=== PATIENT | male | born 1960 | race Caucasian/White ===

== ENCOUNTER 2017-04-25 15:11 | Emergency (ER) | payer BC ==
[~2017-04-25] VITALS: Ht 175.3 cm; Wt 107.7 kg
[2017-04-25] MEDS ORDERED: [UNRECOGNIZED DRUG - CODE] PO (15:20)
[2017-04-25] MEDS ORDERED: MULT1TAB18 PO (15:20)
[2017-04-25] MEDS ORDERED: ASCO25TA PO (15:20)
[2017-04-25] MEDS ORDERED: NS 1,000 ML IV SCH (16:13)
[2017-04-25] MEDS ORDERED: KETOROLAC 30 MG/ML VIAL (J1885) IV ONE (16:15)
[2017-04-25] MEDS ORDERED: ONDANSETRON 4MG/2ML VIAL (J2405) IV ONE (16:15)
[2017-04-25 16:59] LABS: BASO % 0.3 % (0.0-1.0); EOS % 0.2 % (0.0-3.0); IMMATURE GRANULOCYTE % 0.4 % (0-0); LYMPH # 1.4 10^3/uL (1.5-4.5); LYMPH % 11.2 % (24.0-44.0); MEAN CORPUSCULAR HEMOGLOBIN 31.3 pg (27.0-33.0); MEAN CORPUSCULAR HGB CONC 34.8 g/dl (32.0-36.5); MEAN CORPUSCULAR VOLUME 90.1 fl (80.0-96.0); MONO # 0.8 10^3/uL (0.0-0.8); MONO % 6.4 % (0.0-5.0); NEUTROPHILS # 10.1 10^3/uL (1.8-7.7); NEUTROPHILS % 81.5 % (36.0-66.0); PLATELET COUNT, AUTOMATED 198 10^3/uL (150-450); RED CELL DISTRIBUTION WIDTH 12.5 % (11.5-14.5); WHITE BLOOD COUNT 12.4 10^3/uL (4.0-10.0)
--- NOTE | 2017-04-25 17:20 | REP ---
CT abdomen pelvis without IV or bowel contrast: There is a 6 ml calculus in the distal left ureter in the upper pelvis with hydroureter and hydronephrosis above the level of the calculus. There are no other left renal ureteral calculi. There are no right renal or ureteral calculi. There are no bladder calculi. The visualized lower lung lai demonstrate discoid atelectasis in the left lower lobe but otherwise unremarkable. The unenhanced hepatic parenchyma, gallbladder, pancreas and spleen are unremarkable except for a splenic calcified granuloma. The adrenals, abdominal aorta, bowel and mesentery are unremarkable. Pelvis: There is no ascites or adenopathy. The pelvic bowel loops are unremarkable. There is no unremarkable. There is multilevel degenerative disc disease in the lumbar spine. Impression: There is a 6 mm calculus in the distal left ureter in the upper pelvis resulting in left hydronephrosis. Signed by Martínez Ortega MD 04/25/2017 05:12 P
[2017-04-25 17:35] LABS: ALBUMIN/GLOBULIN RATIO 1.33 (1.00-1.93); ALKALINE PHOSPHATASE 50 U/L (45-117); ALT/SGPT 36 U/L (12-78); ANION GAP 8 MEQ/L (8-16); AST/SGOT 20 U/L (15-37); BILIRUBIN,DIRECT < 0.1 MG/DL (0.0-0.2); BILIRUBIN,TOTAL 0.4 MG/DL (0.2-1.0); BLOOD UREA NITROGEN 22 MG/DL (7-18); CALCIUM LEVEL 8.8 MG/DL (8.5-10.1); CARBON DIOXIDE LEVEL 29 MEQ/L (21-32); CHLORIDE LEVEL 105 MEQ/L (98-107); CREATININE FOR GFR 0.91 MG/DL (0.70-1.30); GLOMERULAR FILTRATION RATE > 60.0 (>56); GLUCOSE, FASTING 115 MG/DL (70-105); SODIUM LEVEL 142 MEQ/L (136-145)
[2017-04-25] MEDS ORDERED: MORPHINE 4 MG/ML 1ML SYRINGE IV ONE ×2 (17:45→18:15)
[2017-04-25] MEDS ORDERED: HYDROmorphone HCL 1 MG/ML SYRINGE (J1170) IV ONE (19:30)
[2017-04-25] MEDS ORDERED: ZOFR4TAB3 PO (20:30)
[2017-04-25] MEDS ORDERED: FLOM5CAP PO (20:30)
[2017-04-25] MEDS ORDERED: PERC5TAB12 PO (20:30)
[2017-04-25] MEDS ORDERED: OXYCODONE/APAP 5MG/325MG(BULK FOR ED) 1 TABLET PO ONE (20:30)
[2017-04-25] MEDS ORDERED: TAMSULOSIN 0.4 MG CAP PO ONE (20:30)
[2017-04-25 20:52] VITALS: BP 147/94
== END 2017-04-25 20:55 | disposition home or self-care (01) ==
LOC: M ED 15:11
DX: N21.1 Calculus in urethra (principal); Z79.899 Other long term (current) drug therapy
CPT/HCPCS: 74176; 80048; 80076; 81001; 83690; 85025; 87086; 96374; 96375; 99283; J1170; J1885; J2405

== ENCOUNTER 2017-11-21 10:25 | Emergency (ER) | payer BC ==
[2017-11-21] MEDS: FLUORESCEIN OPHTH 1 MG STRIP OD (11:45)
[2017-11-21] MEDS: TETRACAINE 0.5% OPHTH SOLN 4ML OD (11:45)
== END 2017-11-21 12:45 | disposition home or self-care (01) ==
LOC: M ED 10:25
DX: H53.9 Unspecified visual disturbance (principal); Z79.899 Other long term (current) drug therapy
CPT/HCPCS: 99283

== ENCOUNTER → 2022-07-22 | Outpatient (CLI) | payer BC ==
[~2022-07-22] MED LIST: FLOM0.4C39 PO; GASTROGRAFIN SOLUTION 30ML As Ordered ONE; ISOVUE-370 76% 100ML VIAL As Ordered ONE; MULT1TAB18 PO; PERC5TAB12 PO; VITA250T20 PO; ZOFR4TAB14 PO; [UNRECOGNIZED DRUG - CODE] PO
== END ==
LOC: M RAD 12:49
PROVIDERS: ATTEND Physician Assistant
DX: K46.9 Unspecified abdominal hernia without obstruction or gangrene (principal)

== ENCOUNTER 2022-11-17 10:03 | Inpatient (IN) | payer BC ==
[~2022-11-17] VITALS: Ht 180.3 cm; Wt 101.0 kg
[2022-11-17] MEDS: ENOXAPARIN 40MG/0.4ML SYRINGE (J1650 PER 10MG) SC SCH (09:00)
[~2022-11-17 10:03] MED LIST changes: -GASTROGRAFIN SOLUTION 30ML As Ordered ONE; -ISOVUE-370 76% 100ML VIAL As Ordered ONE
[2022-11-17] MEDS ORDERED: MELO15TA28 PO (10:13)
[2022-11-17] MEDS ORDERED: TUME1CAP PO (10:13)
[2022-11-17 11:14] LABS: BASO % 0.3 % (0.0-1.0); EOS % 0.1 % (0.0-3.0); HEMATOCRIT 47.4 % (42.0-52.0); HEMOGLOBIN 16.5 g/dl (13.5-17.5); LYMPH # 1.5 10^3/uL (1.5-5.0); LYMPH % 13.9 % (24.0-44.0); MEAN CORPUSCULAR HEMOGLOBIN 31.5 pg (27.0-33.0); MEAN CORPUSCULAR HGB CONC 34.8 g/dl (32.0-36.5); MEAN CORPUSCULAR VOLUME 90.6 fl (80.0-96.0); MONO # 0.8 10^3/uL (0.0-0.8); MONO % 7.8 % (2.0-8.0); NEUTROPHILS # 8.2 10^3/uL (1.5-8.5); NEUTROPHILS % 77.4 % (36.0-66.0); PLATELET COUNT, AUTOMATED 204 10^3/uL (150-450); RED BLOOD COUNT 5.23 10^6/uL (4.30-6.10); WHITE BLOOD COUNT 10.6 10^3/uL (4.0-10.0)
[2022-11-17 11:35] LABS: LIPASE 39 U/L (12-53)
[2022-11-17] MEDS ORDERED: ONDANSETRON 4MG 2ML VIAL IV ONE (11:35)
[2022-11-17] MEDS ORDERED: NS 1,000 ML IV ONE (11:35)
[2022-11-17 11:37] LABS: ALBUMIN 4.3 G/DL (3.2-5.2); ALKALINE PHOSPHATASE 57 U/L (46-116); ALT/SGPT 22 U/L (7.0-40); AST/SGOT 20 U/L (<34); BILIRUBIN,DIRECT 0.4 MG/DL (<0.4); BILIRUBIN,TOTAL 1.7 MG/DL (0.3-1.2); BLOOD UREA NITROGEN 19 MG/DL (9-23); CALCIUM LEVEL 9.8 MG/DL (8.3-10.6); CARBON DIOXIDE LEVEL 30 MMOL/L (20-31); CHLORIDE LEVEL 104 MMOL/L (98-107); CREATININE FOR GFR 0.67 MG/DL (0.70-1.30); GLOMERULAR FILTRATION RATE > 60.0 (>49); GLUCOSE, FASTING 117 MG/DL (74-106); POTASSIUM SERUM 3.8 MMOL/L (3.5-5.1); SODIUM LEVEL 137 MMOL/L (136-145); TOTAL PROTEIN 7.1 G/DL (5.7-8.2)
[2022-11-17] MEDS ORDERED: ISOVUE-370 76% 100ML VIAL As Ordered ONE (11:46)
[2022-11-17] MEDS ORDERED: CYAN500T3 PO (12:01)
[2022-11-17] MEDS ORDERED: PRES10CA2 PO (12:01)
[2022-11-17] MEDS ORDERED: VITMTA PO (12:01)
[2022-11-17] MEDS ORDERED: ASCO500T PO (12:01)
[2022-11-17] MEDS ORDERED: RA T500C2 PO (12:01)
[2022-11-17] MEDS ORDERED: HOME MED LIST COMPLETE! XX SCH (12:05)
[2022-11-17 12:40] LABS: CK-MB VALUE MASS 2.2 NG/ML (<3.6)
[2022-11-17 12:41] LABS: MB/CK RELATIVE INDEX 2.22 (< OR =4)
[2022-11-17] MEDS ORDERED: PANTOPRAZOLE 40MG VIAL IV ONE (13:25)
[2022-11-17 14:48] LABS: RSV AMPLIFICATION NEGATIVE (NEGATIVE)
[2022-11-17] MEDS ORDERED: MORPHINE 2 MG/ML 1ML VIAL IV PRN (15:20)
[2022-11-17] MEDS ORDERED: ONDANSETRON 4MG 2ML VIAL IV PRN (15:20)
[2022-11-17] MEDS: LR 1,000 ML IV SCH (15:31)
[2022-11-17 15:45] LABS: MAGNESIUM LEVEL 2.1 MG/DL (1.8-2.4)
[2022-11-17 17:17] VITALS: BP 127/87
[2022-11-17 20:45] VITALS: BP 132/77
[2022-11-18] MEDS: LR 1,000 ML IV SCH ×3 (02:12→23:29)
[2022-11-18 06:00] VITALS: BP 129/86
[2022-11-18 07:20] LABS: HEMATOCRIT 44.7 % (42.0-52.0); HEMOGLOBIN 14.9 g/dl (13.5-17.5); MEAN CORPUSCULAR HEMOGLOBIN 31.4 pg (27.0-33.0); MEAN CORPUSCULAR HGB CONC 33.3 g/dl (32.0-36.5); MEAN CORPUSCULAR VOLUME 94.3 fl (80.0-96.0); PLATELET COUNT, AUTOMATED 171 10^3/uL (150-450); RED BLOOD COUNT 4.74 10^6/uL (4.30-6.10); WHITE BLOOD COUNT 8.2 10^3/uL (4.0-10.0)
[2022-11-18 07:49] LABS: ALBUMIN 3.6 G/DL (3.2-5.2); ALKALINE PHOSPHATASE 48 U/L (46-116); ALT/SGPT 18 U/L (7.0-40); AST/SGOT 18 U/L (<34); BILIRUBIN,TOTAL 1.7 MG/DL (0.3-1.2); BLOOD UREA NITROGEN 19 MG/DL (9-23); CALCIUM LEVEL 8.9 MG/DL (8.3-10.6); CARBON DIOXIDE LEVEL 29 MMOL/L (20-31); CHLORIDE LEVEL 105 MMOL/L (98-107); CREATININE FOR GFR 0.71 MG/DL (0.70-1.30); GLOMERULAR FILTRATION RATE > 60.0 (>49); GLUCOSE, FASTING 97 MG/DL (74-106); POTASSIUM SERUM 3.8 MMOL/L (3.5-5.1); SODIUM LEVEL 141 MMOL/L (136-145); TOTAL PROTEIN 5.8 G/DL (5.7-8.2)
[2022-11-18] MEDS: ENOXAPARIN 40MG/0.4ML SYRINGE (J1650 PER 10MG) SC SCH (08:32)
[2022-11-18] MEDS: PANTOPRAZOLE 40MG VIAL IV SCH (08:32)
[2022-11-18 14:00] VITALS: BP 133/86
[2022-11-18 20:00] VITALS: BP 141/86
[2022-11-19 05:59] VITALS: BP 133/76
[2022-11-19 08:07] LABS: BASO % 0.6 % (0.0-1.0); EOS # 0.1 10^3/uL (0.0-0.5); EOS % 1.4 % (0.0-3.0); HEMATOCRIT 42.6 % (42.0-52.0); HEMOGLOBIN 14.3 g/dl (13.5-17.5); LYMPH # 1.4 10^3/uL (1.5-5.0); LYMPH % 23.1 % (24.0-44.0); MEAN CORPUSCULAR HEMOGLOBIN 31.4 pg (27.0-33.0); MEAN CORPUSCULAR HGB CONC 33.6 g/dl (32.0-36.5); MEAN CORPUSCULAR VOLUME 93.4 fl (80.0-96.0); MONO # 0.6 10^3/uL (0.0-0.8); MONO % 9.3 % (2.0-8.0); NEUTROPHILS # 4.1 10^3/uL (1.5-8.5); NEUTROPHILS % 65.3 % (36.0-66.0); PLATELET COUNT, AUTOMATED 156 10^3/uL (150-450); RED BLOOD COUNT 4.56 10^6/uL (4.30-6.10); WHITE BLOOD COUNT 6.2 10^3/uL (4.0-10.0)
[2022-11-19] MEDS: ENOXAPARIN 40MG/0.4ML SYRINGE (J1650 PER 10MG) SC SCH (08:46)
[2022-11-19] MEDS: PANTOPRAZOLE 40MG VIAL IV SCH (08:46)
[2022-11-19] MEDS: LR 1,000 ML IV SCH ×2 (08:46→18:07)
[2022-11-19 08:48] LABS: BLOOD UREA NITROGEN 20 MG/DL (9-23); CALCIUM LEVEL 8.1 MG/DL (8.3-10.6); CARBON DIOXIDE LEVEL 26 MMOL/L (20-31); CHLORIDE LEVEL 104 MMOL/L (98-107); CREATININE FOR GFR 0.65 MG/DL (0.70-1.30); GLOMERULAR FILTRATION RATE > 60.0 (>49); GLUCOSE, FASTING 80 MG/DL (74-106); POTASSIUM SERUM 3.8 MMOL/L (3.5-5.1); SODIUM LEVEL 142 MMOL/L (136-145)
[2022-11-19 14:00] VITALS: BP 134/77
[2022-11-19 21:14] VITALS: BP 149/87
[2022-11-20 06:00] VITALS: BP 114/71
[2022-11-20 06:07] LABS: BASO % 0.5 % (0.0-1.0); EOS # 0.1 10^3/uL (0.0-0.5); EOS % 1.4 % (0.0-3.0); HEMATOCRIT 38.6 % (42.0-52.0); HEMOGLOBIN 13.1 g/dl (13.5-17.5); LYMPH # 1.7 10^3/uL (1.5-5.0); LYMPH % 26.6 % (24.0-44.0); MEAN CORPUSCULAR HEMOGLOBIN 31.5 pg (27.0-33.0); MEAN CORPUSCULAR HGB CONC 33.9 g/dl (32.0-36.5); MEAN CORPUSCULAR VOLUME 92.8 fl (80.0-96.0); MONO # 0.6 10^3/uL (0.0-0.8); MONO % 8.8 % (2.0-8.0); NEUTROPHILS % 62.4 % (36.0-66.0); PLATELET COUNT, AUTOMATED 152 10^3/uL (150-450); RED BLOOD COUNT 4.16 10^6/uL (4.30-6.10); WHITE BLOOD COUNT 6.5 10^3/uL (4.0-10.0)
[2022-11-20] MEDS: LR 1,000 ML IV SCH ×2 (06:07→16:39)
[2022-11-20 06:23] LABS: BLOOD UREA NITROGEN 13 MG/DL (9-23); CALCIUM LEVEL 7.9 MG/DL (8.3-10.6); CARBON DIOXIDE LEVEL 27 MMOL/L (20-31); CHLORIDE LEVEL 105 MMOL/L (98-107); CREATININE FOR GFR 0.65 MG/DL (0.70-1.30); GLOMERULAR FILTRATION RATE > 60.0 (>49); GLUCOSE, FASTING 90 MG/DL (74-106); POTASSIUM SERUM 3.6 MMOL/L (3.5-5.1); SODIUM LEVEL 141 MMOL/L (136-145)
[2022-11-20] MEDS: ENOXAPARIN 40MG/0.4ML SYRINGE (J1650 PER 10MG) SC SCH (09:29)
[2022-11-20] MEDS: PANTOPRAZOLE 40MG VIAL IV SCH (09:29)
[2022-11-20] MEDS: SIMETHICONE 80MG CHEW TAB PO PRN ×2 (12:17→20:29)
[2022-11-20 14:00] VITALS: BP 155/84
[2022-11-20 22:00] VITALS: BP 146/82
[2022-11-21] MEDS: LR 1,000 ML IV SCH ×3 (01:56→23:36)
[2022-11-21 06:00] VITALS: BP 137/76
[2022-11-21 06:38] LABS: BASO % 0.4 % (0.0-1.0); EOS # 0.1 10^3/uL (0.0-0.5); EOS % 1.4 % (0.0-3.0); HEMATOCRIT 38.6 % (42.0-52.0); HEMOGLOBIN 13.1 g/dl (13.5-17.5); LYMPH # 1.5 10^3/uL (1.5-5.0); LYMPH % 29.5 % (24.0-44.0); MEAN CORPUSCULAR HEMOGLOBIN 31.1 pg (27.0-33.0); MEAN CORPUSCULAR HGB CONC 33.9 g/dl (32.0-36.5); MEAN CORPUSCULAR VOLUME 91.7 fl (80.0-96.0); MONO # 0.4 10^3/uL (0.0-0.8); MONO % 8.5 % (2.0-8.0); NEUTROPHILS # 3.1 10^3/uL (1.5-8.5); PLATELET COUNT, AUTOMATED 161 10^3/uL (150-450); RED BLOOD COUNT 4.21 10^6/uL (4.30-6.10); WHITE BLOOD COUNT 5.2 10^3/uL (4.0-10.0)
[2022-11-21 06:59] LABS: BLOOD UREA NITROGEN 13 MG/DL (9-23); CALCIUM LEVEL 8.2 MG/DL (8.3-10.6); CARBON DIOXIDE LEVEL 24 MMOL/L (20-31); CHLORIDE LEVEL 105 MMOL/L (98-107); CREATININE FOR GFR 0.62 MG/DL (0.70-1.30); GLOMERULAR FILTRATION RATE > 60.0 (>49); GLUCOSE, FASTING 71 MG/DL (74-106); POTASSIUM SERUM 3.6 MMOL/L (3.5-5.1); SODIUM LEVEL 139 MMOL/L (136-145)
[2022-11-21] MEDS: PANTOPRAZOLE 40MG VIAL IV SCH (10:21)
[2022-11-21] MEDS: ENOXAPARIN 40MG/0.4ML SYRINGE (J1650 PER 10MG) SC SCH (10:22)
[2022-11-21] MEDS ORDERED: DEXTROSE 50% 50ML SYRINGE IV PRN (11:15)
[2022-11-21] MEDS ORDERED: GLUCOSE 4GM CHEW TABLET PO PRN (11:15)
[2022-11-21] MEDS ORDERED: GLUCAGON INJ 1MG VIAL SC PRN (11:15)
[2022-11-21 14:00] VITALS: BP 142/84
[2022-11-21] MEDS: SIMETHICONE 80MG CHEW TAB PO PRN (18:36)
[2022-11-22] MEDS: D5W/LR 1,000 ML IV SCH ×3 (01:30→22:23)
[2022-11-22 05:54] LABS: BASO % 0.8 % (0.0-1.0); EOS # 0.1 10^3/uL (0.0-0.5); EOS % 1.2 % (0.0-3.0); HEMOGLOBIN 14.2 g/dl (13.5-17.5); LYMPH # 1.7 10^3/uL (1.5-5.0); LYMPH % 32.9 % (24.0-44.0); MEAN CORPUSCULAR HEMOGLOBIN 31.1 pg (27.0-33.0); MEAN CORPUSCULAR HGB CONC 34.6 g/dl (32.0-36.5); MEAN CORPUSCULAR VOLUME 89.7 fl (80.0-96.0); MONO # 0.5 10^3/uL (0.0-0.8); MONO % 9.4 % (2.0-8.0); NEUTROPHILS # 2.9 10^3/uL (1.5-8.5); NEUTROPHILS % 55.5 % (36.0-66.0); PLATELET COUNT, AUTOMATED 173 10^3/uL (150-450); RED BLOOD COUNT 4.57 10^6/uL (4.30-6.10); WHITE BLOOD COUNT 5.2 10^3/uL (4.0-10.0)
[2022-11-22 06:18] LABS: BLOOD UREA NITROGEN 9 MG/DL (9-23); CALCIUM LEVEL 8.4 MG/DL (8.3-10.6); CARBON DIOXIDE LEVEL 25 MMOL/L (20-31); CHLORIDE LEVEL 104 MMOL/L (98-107); CREATININE FOR GFR 0.62 MG/DL (0.70-1.30); GLOMERULAR FILTRATION RATE > 60.0 (>49); GLUCOSE, FASTING 104 MG/DL (74-106); POTASSIUM SERUM 3.8 MMOL/L (3.5-5.1); SODIUM LEVEL 139 MMOL/L (136-145)
[2022-11-22 06:30] VITALS: BP 143/83
[2022-11-22] MEDS: PANTOPRAZOLE 40MG VIAL IV SCH (09:27)
[2022-11-22] MEDS: ENOXAPARIN 40MG/0.4ML SYRINGE (J1650 PER 10MG) SC SCH (09:28)
[2022-11-22] MEDS: GASTROGRAFIN SOLUTION 30ML PO SCH ×2 (11:04→11:37)
[2022-11-22] MEDS ORDERED: ISOVUE-370 76% 100ML VIAL As Ordered ONE (12:15)
[2022-11-22 14:00] VITALS: BP 132/88
[2022-11-22 22:00] VITALS: BP 129/84
[2022-11-23 06:00] VITALS: BP 131/67
[2022-11-23 06:29] LABS: BASO % 0.2 % (0.0-1.0); EOS # 0.1 10^3/uL (0.0-0.5); EOS % 1.4 % (0.0-3.0); HEMATOCRIT 36.8 % (42.0-52.0); HEMOGLOBIN 12.8 g/dl (13.5-17.5); LYMPH # 1.1 10^3/uL (1.5-5.0); LYMPH % 22.7 % (24.0-44.0); MEAN CORPUSCULAR HEMOGLOBIN 31.3 pg (27.0-33.0); MEAN CORPUSCULAR HGB CONC 34.8 g/dl (32.0-36.5); MONO # 0.5 10^3/uL (0.0-0.8); MONO % 10.1 % (2.0-8.0); NEUTROPHILS # 3.2 10^3/uL (1.5-8.5); NEUTROPHILS % 65.2 % (36.0-66.0); PLATELET COUNT, AUTOMATED 162 10^3/uL (150-450); RED BLOOD COUNT 4.09 10^6/uL (4.30-6.10); WHITE BLOOD COUNT 4.9 10^3/uL (4.0-10.0)
[2022-11-23 06:49] LABS: BLOOD UREA NITROGEN < 5 MG/DL (9-23); CALCIUM LEVEL 8.1 MG/DL (8.3-10.6); CARBON DIOXIDE LEVEL 28 MMOL/L (20-31); CHLORIDE LEVEL 106 MMOL/L (98-107); CREATININE FOR GFR 0.63 MG/DL (0.70-1.30); GLOMERULAR FILTRATION RATE > 60.0 (>49); GLUCOSE, FASTING 121 MG/DL (74-106); MAGNESIUM LEVEL 1.8 MG/DL (1.8-2.4); POTASSIUM SERUM 3.5 MMOL/L (3.5-5.1); SODIUM LEVEL 142 MMOL/L (136-145)
[2022-11-23] MEDS: D5W/LR 1,000 ML IV SCH (08:25)
[2022-11-23] MEDS: PANTOPRAZOLE 40MG VIAL IV SCH (08:27)
[2022-11-23] MEDS: ENOXAPARIN 40MG/0.4ML SYRINGE (J1650 PER 10MG) SC SCH (08:28)
[2022-11-23 14:00] VITALS: BP 140/90
[2022-11-23] MEDS: ACETAMINOPHEN TAB 650MG DOSE (2X325MG) PO PRN ×2 (15:13→20:28)
[2022-11-23 20:00] VITALS: BP 133/91
[2022-11-23 21:38] VITALS: BP 122/79
[2022-11-23] MEDS ORDERED: NS 1,000 ML IV ONE (21:40)
[2022-11-23] MEDS ORDERED: IBUPROFEN 400MG TAB PO ONE (22:00)
[2022-11-23 22:31] LABS: BASO % 0.2 % (0.0-1.0); HEMATOCRIT 36.3 % (42.0-52.0); HEMOGLOBIN 12.8 g/dl (13.5-17.5); LYMPH # 0.7 10^3/uL (1.5-5.0); LYMPH % 12.3 % (24.0-44.0); MEAN CORPUSCULAR HEMOGLOBIN 31.5 pg (27.0-33.0); MEAN CORPUSCULAR HGB CONC 35.3 g/dl (32.0-36.5); MEAN CORPUSCULAR VOLUME 89.4 fl (80.0-96.0); MONO # 0.4 10^3/uL (0.0-0.8); MONO % 6.7 % (2.0-8.0); NEUTROPHILS # 4.8 10^3/uL (1.5-8.5); NEUTROPHILS % 80.5 % (36.0-66.0); PLATELET COUNT, AUTOMATED 144 10^3/uL (150-450); RED BLOOD COUNT 4.06 10^6/uL (4.30-6.10)
[2022-11-23 22:38] LABS: ERYTHROCYTE SEDIMENTATION RATE < 1 mm/hr (0-20)
[2022-11-23] MEDS: VANCOMYCIN HCL 1,000 MG, VIAL MATE ADAPTER 1 EACH in D5W 250 ML IV SCH (23:01)
[2022-11-24] MEDS ORDERED: VANCOMYCIN HCL 1,000 MG, VIAL MATE ADAPTER 1 EACH in D5W 250 ML IV ONE ×3
[2022-11-24] MEDS: ACETAMINOPHEN TAB 650MG DOSE (2X325MG) PO PRN ×3 (01:07→16:59)
[2022-11-24 02:00] VITALS: BP 103/57
[2022-11-24 06:00] VITALS: BP 113/67
[2022-11-24 06:26] LABS: HEMATOCRIT 37.2 % (42.0-52.0); HEMOGLOBIN 12.9 g/dl (13.5-17.5); MEAN CORPUSCULAR HEMOGLOBIN 31.7 pg (27.0-33.0); MEAN CORPUSCULAR HGB CONC 34.7 g/dl (32.0-36.5); MEAN CORPUSCULAR VOLUME 91.4 fl (80.0-96.0); PLATELET COUNT, AUTOMATED 126 10^3/uL (150-450); RED BLOOD COUNT 4.07 10^6/uL (4.30-6.10); WHITE BLOOD COUNT 3.9 10^3/uL (4.0-10.0)
[2022-11-24] MEDS: VANCOMYCIN HCL 1,000 MG, VIAL MATE ADAPTER 1 EACH in D5W 250 ML IV SCH ×3 (06:40→23:46)
[2022-11-24 06:51] LABS: ALKALINE PHOSPHATASE 41 U/L (46-116); ALT/SGPT 33 U/L (7.0-40); AST/SGOT 13 U/L (<34); BILIRUBIN,TOTAL 1.1 MG/DL (0.3-1.2); BLOOD UREA NITROGEN 5 MG/DL (9-23); CALCIUM LEVEL 7.8 MG/DL (8.3-10.6); CARBON DIOXIDE LEVEL 26 MMOL/L (20-31); CHLORIDE LEVEL 106 MMOL/L (98-107); CREATININE FOR GFR 0.67 MG/DL (0.70-1.30); GLOMERULAR FILTRATION RATE > 60.0 (>49); GLUCOSE, FASTING 102 MG/DL (74-106); POTASSIUM SERUM 3.3 MMOL/L (3.5-5.1); SODIUM LEVEL 140 MMOL/L (136-145); TOTAL PROTEIN 5.1 G/DL (5.7-8.2)
[2022-11-24] MEDS ORDERED: POTASSIUM CHLORIDE 10MEQ SR TABLET PO ONE (07:45)
[2022-11-24 08:53] LABS: MONO REFLEX EBV COMP NEGATIVE (NEGATIVE)
[2022-11-24 10:00] VITALS: BP 125/81
[2022-11-24] MEDS: PANTOPRAZOLE 40MG VIAL IV SCH (10:54)
[2022-11-24] MEDS: ENOXAPARIN 40MG/0.4ML SYRINGE (J1650 PER 10MG) SC SCH (10:55)
[2022-11-24 14:00] VITALS: BP 138/80
[2022-11-24 18:00] VITALS: BP 135/80
[2022-11-24] MEDS: cefTRIAXone SOD 1 GM in D5W MINI-BAG PLUS 50 ML IV SCH (18:53)
[2022-11-24] MEDS ORDERED: KETOROLAC 30 MG/ML 1ML VIAL IV ONE (18:55)
[2022-11-24 22:00] VITALS: BP 109/75
[2022-11-25] MEDS: ACETAMINOPHEN TAB 650MG DOSE (2X325MG) PO PRN (00:11)
[2022-11-25 02:00] VITALS: BP 114/76
[2022-11-25] MEDS: VANCOMYCIN HCL 1,000 MG, VIAL MATE ADAPTER 1 EACH in D5W 250 ML IV SCH ×4 (05:05→23:38)
[2022-11-25 06:00] VITALS: BP 113/66
[2022-11-25] MEDS: cefTRIAXone SOD 1 GM in D5W MINI-BAG PLUS 50 ML IV SCH ×2 (06:15→19:05)
[2022-11-25 06:20] LABS: HEMATOCRIT 37.3 % (42.0-52.0); HEMOGLOBIN 12.9 g/dl (13.5-17.5); MEAN CORPUSCULAR HEMOGLOBIN 31.4 pg (27.0-33.0); MEAN CORPUSCULAR HGB CONC 34.6 g/dl (32.0-36.5); MEAN CORPUSCULAR VOLUME 90.8 fl (80.0-96.0); PLATELET COUNT, AUTOMATED 136 10^3/uL (150-450); RED BLOOD COUNT 4.11 10^6/uL (4.30-6.10); WHITE BLOOD COUNT 3.5 10^3/uL (4.0-10.0)
[2022-11-25 07:04] LABS: ALBUMIN 3.1 G/DL (3.2-5.2); ALKALINE PHOSPHATASE 43 U/L (46-116); ALT/SGPT 49 U/L (7.0-40); AST/SGOT 38 U/L (<34); BILIRUBIN,TOTAL 0.5 MG/DL (0.3-1.2); BLOOD UREA NITROGEN 8 MG/DL (9-23); CALCIUM LEVEL 8.3 MG/DL (8.3-10.6); CARBON DIOXIDE LEVEL 26 MMOL/L (20-31); CHLORIDE LEVEL 105 MMOL/L (98-107); CREATININE FOR GFR 0.69 MG/DL (0.70-1.30); GLOMERULAR FILTRATION RATE > 60.0 (>49); GLUCOSE, FASTING 88 MG/DL (74-106); POTASSIUM SERUM 3.4 MMOL/L (3.5-5.1); SODIUM LEVEL 139 MMOL/L (136-145); TOTAL PROTEIN 5.3 G/DL (5.7-8.2)
[2022-11-25] MEDS: DOCUSATE SODIUM 100MG CAPSULE PO SCH ×2 (09:00→20:33)
[2022-11-25] MEDS: PANTOPRAZOLE 40MG VIAL IV SCH (09:10)
[2022-11-25] MEDS: ENOXAPARIN 40MG/0.4ML SYRINGE (J1650 PER 10MG) SC SCH (09:10)
[2022-11-25] MEDS ORDERED: MIRALAX *UNIT DOSE* 17GM PACKET PO PRN (09:45)
[2022-11-25] MEDS ORDERED: MIRALAX *UNIT DOSE* 17GM PACKET PO ONE (10:00)
[2022-11-25 14:00] VITALS: BP 103/76
[2022-11-25 16:10] LABS: EBV VIRAL CAPSID AG IgM <36.0 U/mL (0.0-35.9)
[2022-11-25] MEDS ORDERED: POTASSIUM CHLORIDE 10MEQ SR TABLET PO ONE (19:20)
[2022-11-25 21:00] VITALS: BP 107/75
[2022-11-25] MEDS ORDERED: SENNA 8.6 MG TAB (SENOKOT) PO SCH (21:00)
[2022-11-26] MEDS: VANCOMYCIN HCL 1,000 MG, VIAL MATE ADAPTER 1 EACH in D5W 250 ML IV SCH ×2 (05:35→10:59)
[2022-11-26 06:00] VITALS: BP 125/74
[2022-11-26 06:31] LABS: HEMATOCRIT 35.2 % (42.0-52.0); HEMOGLOBIN 12.2 g/dl (13.5-17.5); MEAN CORPUSCULAR HEMOGLOBIN 31.5 pg (27.0-33.0); MEAN CORPUSCULAR HGB CONC 34.7 g/dl (32.0-36.5); PLATELET COUNT, AUTOMATED 134 10^3/uL (150-450); RED BLOOD COUNT 3.87 10^6/uL (4.30-6.10); WHITE BLOOD COUNT 4.2 10^3/uL (4.0-10.0)
[2022-11-26 07:05] LABS: ALBUMIN 2.8 G/DL (3.2-5.2); ALKALINE PHOSPHATASE 41 U/L (46-116); ALT/SGPT 36 U/L (7.0-40); AST/SGOT 21 U/L (<34); BILIRUBIN,TOTAL 0.4 MG/DL (0.3-1.2); BLOOD UREA NITROGEN 8 MG/DL (9-23); CARBON DIOXIDE LEVEL 25 MMOL/L (20-31); CHLORIDE LEVEL 108 MMOL/L (98-107); CREATININE FOR GFR 0.61 MG/DL (0.70-1.30); GLOMERULAR FILTRATION RATE > 60.0 (>49); GLUCOSE, FASTING 108 MG/DL (74-106); POTASSIUM SERUM 3.6 MMOL/L (3.5-5.1); SODIUM LEVEL 141 MMOL/L (136-145); TOTAL PROTEIN 5.2 G/DL (5.7-8.2)
[2022-11-26] MEDS: cefTRIAXone SOD 1 GM in D5W MINI-BAG PLUS 50 ML IV SCH (07:23)
[2022-11-26] MEDS: DOCUSATE SODIUM 100MG CAPSULE PO SCH (07:52)
[2022-11-26] MEDS: ENOXAPARIN 40MG/0.4ML SYRINGE (J1650 PER 10MG) SC SCH (08:47)
[2022-11-26] MEDS: PANTOPRAZOLE 40MG VIAL IV SCH (08:47)
[2022-11-26] MEDS ORDERED: ACET1TAB55 PO (11:06)
[2022-11-26] MEDS ORDERED: MIRA1POW3 PO (11:06)
[2022-11-26] MEDS ORDERED: ACID1TAB PO (11:06)
[2022-11-26] MEDS ORDERED: CEPH500C PO ×2 (11:06→11:41)
[2022-11-26] MEDS ORDERED: COLA100C5 PO (11:06)
[2022-11-26] MEDS ORDERED: SENN18TA PO (11:06)
== END 2022-11-26 13:30 | disposition home or self-care (01) | DRG 720 ==
LOC: M ED 10:03 → M MSPAV 15:16 → M ED INP 15:16 → ENRESERV 15:49 → M MSPAV 17:02
PROVIDERS: ADMIT Internal Medicine; ATTEND Internal Medicine
DX: A41.9 Sepsis, unspecified organism (principal); K56.609 Unspecified intestinal obstruction, unspecified as to partial versus complete obstruction; I80.8 Phlebitis and thrombophlebitis of other sites; K50.00 Crohn's disease of small intestine without complications; K76.0 Fatty (change of) liver, not elsewhere classified; I82.611 Acute embolism and thrombosis of superficial veins of right upper extremity; M19.90 Unspecified osteoarthritis, unspecified site; K21.9 Gastro-esophageal reflux disease without esophagitis; E87.6 Hypokalemia; K42.9 Umbilical hernia without obstruction or gangrene; E53.8 Deficiency of other specified B group vitamins; L03.113 Cellulitis of right upper limb; K20.90 Esophagitis, unspecified without bleeding; J98.11 Atelectasis; N20.0 Calculus of kidney; Z79.899 Other long term (current) drug therapy